=== PATIENT | male | born 2000 | race African-American/Black ===

== ENCOUNTER 2023-12-01 12:41 | Emergency (ER) | payer MEDICAID ==
[~2023-12-01] VITALS: Ht 190.5 cm; Wt 83.9 kg
[2023-12-01 12:49] VITALS: BP 129/80; TEMP 97.9; O2SAT 98
[2023-12-01] MEDS ORDERED: IBUP-1955 PO (14:00)
== END 2023-12-01 14:20 | disposition home or self-care (01) ==
LOC: ER 13:10
DX: K08.89 Other specified disorders of teeth and supporting structures (principal); F12.10 Cannabis abuse, uncomplicated